=== PATIENT | male | born 1990 | race Caucasian/White ===

== ENCOUNTER 2016-06-18 10:01 | Inpatient (IN) | payer OTHER ==
--- NOTE | ~2016-06-18 | PA ---
Unit #: [id number] #: [id number] Patient: KADE GOMEZ [id number] [facility] [address] [place] [address] [id number] MR#: [id number] NAME: KADE GOMEZ. ROOM: 85 Age: 26 Sex: M Admission Date: 06/18/2016 : 1990 Date of Assessment: 06/19/2016 Attending Physician: Zaid Robertson M.D. Admitting Physician: Zaid Robertson M.D. PSYCHIATRIC ASSESSMENT INFORMANTS The patient reliability, fair informant and chart reliability, good. CHIEF COMPLAINT Substance abuse withdrawals and opioid abuse. HISTORY OF PRESENT ILLNESS Jack Gomez is a 26-year-old male, seen on , who presented with the opioid addiction. The patient reported having opioid addiction and withdrawal. The patient reported using 7 to 10 Roxys 30 mg daily. The patient reported last use yesterday. The patient reported his longest time of no use was two days. The patient reported currently symptoms such as restlessness of his legs, cold sweats, body aches, stuffy nose, low energy, dilated pupil, and irritability. The patient reported "I have opioid addiction." The patient currently denied any suicidal or homicidal ideation. The patient currently having withdrawal symptoms as mentioned above. Needing inpatient admission at this time for psychiatric stabilization. Denied any psychotic symptoms. The patient scored 17 on COWS score. PAST PSYCHIATRIC HISTORY Remarkable for history of outpatient treatment. No history of any inpatient treatment. FAMILY HISTORY AND SOCIAL HISTORY History of opioid abuse in mother and father. No history of any abuse. MEDICAL HISTORY Remarkable for asthma and obesity. Musculoskeletal; muscle strength and tone, no atrophy or abnormal movement. Gait normal. MEDICATION HISTORY None. ALLERGIES No known drug allergies. SUBSTANCE ABUSE HISTORY The patient reported alcohol use, age of onset 16; marijuana, age of onset 18; and opioid, age of onset 23. The patient denied any blackout, HIV, hepatitis, or any IV drug use, but currently reporting abdominal cramping, muscle cramping, diaphoresis, poor appetite, sleep problem, depressed mood, runny nose, muscle cramping, and tremors. Unit #: [id number] #: [id number] Patient: KADE GOMEZ REVIEW OF SYSTEMS HEENT: Eyes, clear. Ears, nose, mouth, and throat; clear. CARDIOVASCULAR: Unremarkable. RESPIRATORY: Unremarkable. GI: Unremarkable. : Unremarkable. SKIN: Unremarkable. LYMPH NODE: Unremarkable. NEUROLOGIC: Unremarkable. ENDOCRINE: Unremarkable. HEMATOLOGIC: Unremarkable. ALLERGIC/IMMUNOLOGIC: Unremarkable. MUSCULOSKELETAL: Muscle strength and tone, no atrophy or abnormal movement. Gait normal. MENTAL STATUS EXAMINATION CONSTITUTIONAL: Measurement of vital signs; temperature 97.6, heart rate 65, respiratory rate 17, blood pressure 122/70, height 5 feet 6 inches, and weight is 278 pounds. GENERAL APPEARANCE: The patient dressed casually. The patient did not show any facial deformity. MUSCULOSKELETAL: Please see above. PSYCHIATRIC EXAMINATION Description of speech; regular rate, normal volume, normal articulation, and coherent. Description of thought process, goal directed. Description of association, intact. Description of abnormal psychotic thinking; the patient denied any hallucinations or delusions. Mood lability. Substance abuse. Description of the patient's judgment: Concerning everyday activity, poor. Social situation, poor. Concerning psychiatric condition, poor. Complete mental status examination; oriented in time, place, and person. Recent and remote memory, fair. Attention span and concentration, fair. Language, able to name object and repeat phrases. Fund of knowledge, aware of current event and passive vocabulary intact. Mood and affect, sad and dysphoric. Insight and judgment, fair to poor. ASSETS AND LIABILITIES Assets, the patient is articulate and able to take care of his ADL. Liability, history of substance abuse. ADMITTING DIAGNOSES Psychiatric: Opioid use disorder, severe, F11.20 and mood disorder, not otherwise specified, F32.9. Secondary diagnosis: Deferred. Medical diagnoses: Obesity and asthma. Stressors: Psychosocial stressors. PSYCHIATRIC PLAN AND TREATMENT GOAL AND DISCHARGE PLAN 1. Advised to admit the patient on the inpatient unit. Provide safe, supportive, and structured environment. 2. Ordered labs; CBC, CMP, UA, and UDS. 3. Detox protocol and detox monitoring. Unit #: [id number] #: [id number] Patient: KADE GOMEZ 4. If needed, consider further adjustment of medication. 5. The patient to attend all the programing on the inpatient unit with group therapy, individual therapy, and medication management. TREATMENT GOAL To attain euthymic mood, gain insight into his problem, and learn coping skills. DISCHARGE PLAN Plan to stabilize the patient and consider followup in outpatient program. ESTIMATED LENGTH OF STAY 5 days. Dictated by... Genevieve Tom/evelio TD: 06/19/2016 17:09 JOB #: [id number] PSYCHIATRIC ASSESSMENT Page 1 of 1 X Zaid Robertson MD X PSYCHIATRIC ASSESSMENT
--- NOTE | ~2016-06-18 | PN ---
Unit #: [id number] #: [id number] Patient: KADE GOMEZ [id number] [facility] [address] [place] [address] [id number] MR#: [id number] NAME: KADE GOMEZ. ROOM: P185 Age: 26 Sex: M Admission Date: 06/18/2016 : 1990 Attending Physician: Zaid Robertson M.D. Admitting Physician: Genevieve Tom PROGRESS NOTES DATE OF SERVICE: 06/19/2016 DISCUSSION Kade Gomez is a 26-year-old male, seen on 06/19/2016. The patient interviewed, chart reviewed, and obtained information from nursing staff. The patient withdrawn, isolative, flat affect, sad, and dysphoric. Still having withdrawal symptoms such as anxiety, nervousness, mood lability, muscle cramping, restlessness, and anxiety. REVIEW OF SYSTEMS Complete review of systems unremarkable. MENTAL STATUS EXAMINATION General appearance, the patient dressed casually. Vital signs; temperature afebrile, pulse 70, respirations 16, blood pressure 144/74. Attention span and concentration, fair. Oriented in time, place, and person. Mood and affect were labile. Speech, regular rate. Thought process, goal directed. The patient denied any thoughts of harming self or others or any psychotic symptom. Recent and remote memory, poor. Insight and judgment, poor. DIAGNOSIS Opioid use disorder, severe, F11.20. ASSESSMENT AND PLAN Advised to continue with current detox protocol and detox monitoring. If needed, consider further adjustment of medication. Dictated by... Genevieve Tom/evelio TD: 06/20/2016 04:02 JOB #: [id number] Unit #: [id number] #: [id number] Patient: KADE GOMEZ MARIANNE GRIDER NOTES X Zaid Robertson MD PROGRESS NOTE
--- NOTE | ~2016-06-18 | HP ---
Unit #: [id number] #: [id number] Patient: KADE GOMEZ [id number] [place] [address] [id number] MR#: [id number] NAME: KADE GOMEZ. ROOM: P186 Age: 26 Sex: M Admission Date: 06/18/2016 : 1990 Attending Physician: Zaid Robertson M.D. Admitting Physician: Zaid Robertson M.D. HISTORY AND PHYSICAL HISTORY OF PRESENT ILLNESS Kade is a 26 year old admitted to [facility] because of his abuse of pain pills. PAST MEDICAL HISTORY 1. Long history of opioid abuse. 2. Morbid obesity. 3. Asthma. PAST SURGICAL HISTORY Appendectomy. ALLERGIES No known drug allergies. SOCIAL HISTORY He denies cigarettes and alcohol. Admits to a long history of opioid abuse. Currently, he is using up to 300 mg of some kind of opioid on a daily basis. FAMILY HISTORY Medically noncontributory. REVIEW OF SYSTEMS CONSTITUTIONAL: No fever or chills. HEENT: Denies any sore throat, ear pain or runny nose. CARDIOVASCULAR: Denies chest pain, irregular heart rhythm or palpitations. CHEST: Denies shortness of breath or cough. No hemoptysis. GASTROINTESTINAL: Denies nausea, vomiting, diarrhea or chronic constipation. ENDOCRINE: Denies history of increased thirst or urination. No recent significant weight loss or gain. GENITOURINARY: Denies dysuria, frequency, or hematuria. SKIN: Denies any rashes. HEMATOLOGIC: Denies history of increased bleeding or bruising. MUSCULOSKELETAL: Denies any hot, swollen joints. No generalized muscle pain. NEUROLOGIC: Denies problems with vision or speech. No frequent, severe headaches. No numbness, tingling or weakness in any extremities. Denies loss of bladder or bowel control. CURRENT MEDICATIONS Detox protocol. Unit #: [id number] #: [id number] Patient: KADE GOMEZ PHYSICAL EXAMINATION GENERAL: Alert, well-nourished, in no apparent distress. VITAL SIGNS: Blood pressure 144/74, heart rate 76, respirations 16, temperature 98.6. WEIGHT: 278. HEIGHT: 5 feet 6 inches. SKIN: Warm and dry without rash or lesion. HEENT: Normocephalic. TMs not viewed. Oral and nasal passages clear. Conjunctivae clear. PERRLA. EOMs intact. NECK: Supple without lymphadenopathy or thyromegaly. HEART: Regular rate and rhythm without murmur. LUNGS: Clear. ABDOMEN: Soft, nontender. : Not done. EXTREMITIES: No evidence of cyanosis, clubbing or edema. Moves all without focal deficit. NEUROLOGICAL: Grossly within normal limits. Cranial Nerves: II: Visual panchal are intact. III, IV AND : Extraocular movements are intact. Pupils are equal, round and reactive to light. V: Facial sensation is grossly normal. VII: Facial movements and expression are normal. VIII: Auditory acuity grossly intact. IX, X: Uvula is midline. Phonation is normal. XI: Patient shrugs shoulders and turns head normally. XII: Tongue protrudes in the midline. Sensory and Motor Function: Sensory and motor sensation is grossly normal. Motor: moves all extremities well. Coordination: Gait is normal. Deep Tendon Reflexes: Intact. IMPRESSION Psychiatric admission. RECOMMENDATIONS PSYCHIATRIC: Per psychiatrist. MEDICAL: See no contraindications to participate in facility's activities. MEDICAL PROGNOSIS Good. MEDICAL CONDITION Stable. Dictated by... Tamar Garcia P.A.-C. for Genevieve Tamez/richi TD: 06/18/2016 23:12 JOB #: [id number] Unit #: [id number] #: [id number] Patient: KADE GOMEZ HISTORY AND PHYSICAL X Tamar Garcia X HISTORY AND PHYSICAL
--- NOTE | ~2016-06-18 | PN ---
Unit #: [id number] #: [id number] Patient: KADE GOMEZ [id number] [facility] [address] [place] [address] [id number] I MR#: [id number] NAME: KADE GOMEZ. ROOM: P185 Age: 26 Sex: M Admission Date: 06/18/2016 : 1990 Attending Physician: Zaid Robertson M.D. Admitting Physician: Genevieve Tom PROGRESS NOTES DATE 06/20/2016 DISCUSSION Kade Gomez is a 26-year-old male seen on 06/20/2016. The patient interviewed, chart reviewed. Obtained information from nursing staff. The patient was compliant and cooperative. Mood sad, dysphoric, withdrawn, isolative, guarded. The patient was able to participate in all programming, able to maintain safe behavior. Complete review of systems unremarkable. MENTAL STATUS EXAMINATION General appearance, the patient dressed casually. Attention span and concentration fair. Oriented to place and person. Mood and affect sad, depressed. Speech monotone. Thought process concrete. The patient denied any thoughts of harming self or others but sad, depressed, withdrawn, isolative. Recent and remote memory poor. Insight and judgement poor. DIAGNOSES 1. Mood disorder NOS. 2. Opioid use disorder severe. ASSESSMENT/PLAN Advise to continue with current medication and therapeutic protocol. If needed consider further adjustment of medication. Dictated by... Genevieve Tom/hermelindo TD: 06/22/2016 02:41 JOB #: [id number] Unit #: [id number] #: [id number] Patient: KADE OGMEZ [facility] PROGRESS NOTES X Zaid Robertson MD PROGRESS NOTE
--- NOTE | ~2016-06-18 | DS ---
Unit #: [id number] #: [id number] Patient: KADE GOMEZ [id number] [place] [address] [id number] I MR#: [id number] NAME: KADE GOMEZ. ROOM: P185 Age: 26 Sex: M Admission Date: 06/18/2016 : 1990 Discharge Date: 06/21/2016 Attending Physician: Zaid Robertson M.D. DISCHARGE SUMMARY REASON FOR ADMISSION Chemical dependency. HOSPITAL COURSE Kade Gomez is a 26-year-old male, admitted on 06/18/2016 and discharged on 06/21/2016. The patient was treated on the inpatient unit with detox protocol and detox monitoring. The patient responded with group therapy, individual therapy, and medication management. Subsequently, the patient was discharged with a plan to follow up in outpatient program. DISCHARGE MEDICATIONS None. DISCHARGE DIAGNOSES Psychiatric: 1. Opioid use disorder, severe, F11.20. 2. Mood disorder, not otherwise specified, F32.9. Secondary diagnosis: Deferred. Medical diagnosis: None. Stressors: Psychosocial stressors. DISCHARGE INSTRUCTIONS The patient is to follow up in outpatient clinic as per social studies department chair. PROGNOSIS Guarded. DIET AND ACTIVITY As tolerated. Dictated by... Zaid Robertson M.D. SZGilberto/marcelol TD: 06/21/2016 15:28 JOB #: [id number] Unit #: [id number] #: [id number] Patient: KADE GOMEZ DISCHARGE SUMMARY X Zaid Robertson MD X DISCHARGE SUMMARY
--- NOTE | ~2016-06-18 | CO ---
Unit #: [id number] #: [id number] Patient: KADE GOMEZ [id number] [place] [address] [id number] MR#: [id number] NAME: KADE GOMEZ ROOM: P185 Age: 26 Sex: M Admission Date: 06/18/2016 : 1990 Attending Physician: Zaid Robertson M.D. Consultation Date: 06/18/2016 CONSULTATION REPORT SUBJECTIVE Kade is a 26-year-old with history of asthma. He has told staff that he has used an inhaler at some time, but has been noncompliant with this for a very long time. We have been asked to assess and treat. The patient was seen for his admission H and P on 06/18/2016. He did give us a history of COPD/asthma, and reported he had no problem with this in quite some time. The patient was examined and lungs were found to be clear. There was no plan to start any kind of inhaler. Dictated by... Tamar Garcia P.A.-C. for Genevieve Tamez/evelio TD: 06/25/2016 03:20 JOB #: [id number] CONSULTATION REPORT Page 1 of 1 X Tamar Garcia CONSULTATION REPORT
[2016-06-19 12:24] LABS: BASOPHIL% 0.3 % (0-2.5); EOSINOPHIL# 0.1 X10e3 (0-0.7); EOSINOPHIL% 0.5 % (0.0-7.0); HEMATOCRIT 37.5 % (38.0-50.0); HEMOGLOBIN 12.7 gm/dL (13.0-16.0); LYMPHOCYTE# 2.3 X10e3 (1.0-3.5); LYMPHOCYTE% 18.1 % (17.0-45.0); MEAN CELL VOLUME 84.3 FL (83-96); MEAN CORPUSCULAR HEMOGLOBIN 28.4 PG (28-34); MEAN CORPUSCULAR HGB CONC 33.7 g/dL (30-36); MEAN PLATELET VOLUME 7.7 FL (6.5-11.5); MONOCYTE# 0.8 X10e3 (0-1.0); NEUTROPHIL# 9.5 X10e3 (1.5-7.1); NEUTROPHIL% 75.1 % (40-75); PLATELET COUNT 351 X10e3 (140-420); RED BLOOD COUNT 4.45 X10e (3.90-5.60); RED CELL DISTRIBUTION WIDTH 12.8 % (11.0-15.5); WHITE BLOOD COUNT 12.6 X10e3 (4.0-10.5)
[2016-06-19 12:40] LABS: ALBUMIN SERUM 4.5 g/dL (3.5-5.0); ALKALINE PHOSPHATASE 58 U/L (32-92); ALT (SGPT) 35 U/L (10-40); AST (SGOT) 22 U/L (10-42); BILIRUBIN,TOTAL 0.6 mg/dL (0.2-2.0); BLOOD UREA NITROGEN 11 mg/dL (9-23); BUN/CREATININE RATIO 15.71; CALCIUM SERUM 10.1 mg/dL (8.4-10.2); CARBON DIOXIDE 26 mmol/L (22-31); CHLORIDE 105 mmol/L (100-111); CREATININE SERUM 0.7 mg/dL (0.6-1.4); GLOM FILT RATE Estimated ABOVE60 mL/min (>60); GLUCOSE FASTING 104 mg/dL (70-110); POTASSIUM 3.9 mmol/L (3.5-5.1); PROTEIN TOTAL SERUM 7.7 g/dL (6.0-8.3); SODIUM 140 mmol/L (135-145)
[2016-06-19 12:44] LABS: DIFF IND NO
[2016-06-19 12:45] LABS: THYROID STIMULATING HORMONE 0.51 uIU/ml (0.34-5.60)
[2016-06-19 12:52] LABS: FREE THYROXIN (T4) 0.88 ng/dL (0.58-1.64)
[2016-06-20 14:34] LABS: URINE APPEARANCE CLEAR; URINE BILIRUBIN NEG (NEG); URINE BLOOD NEG (NEG); URINE COLOR YELLOW; URINE GLUCOSE NEG (NEG); URINE KETONE NEG (NEG); URINE LEUKOCYTE ESTERASE NEG (NEG); URINE NITRATE NEG (NEG); URINE PH 5.5 (5-8); URINE PROTEIN NEG (NEG); URINE SPECIFIC GRAVITY 1.017 (1.003-1.035); URINE UROBILINOGEN 0.2 MG/DL (NEG)
[2016-06-20 14:57] LABS: AMPHETAMINE NEG (NEG); BARBITURATES NEG (NEG); BENZODIAZEPINES NEG (NEG); COCAINE NEG (NEG); MARIJUANA NEG (NEG); OPIATES NEG (NEG); TRICYCLIC ANTIDEPRESSANTS POS (NEG); U METHADONE NEG (NEG)
== END 2016-06-21 11:20 | disposition home or self-care (01) | DRG 897 ==
LOC: POF 10:01 → P1E 10:32
PROVIDERS: Psychiatry & Neurology Psychiatry
PROC: HZ2ZZZZ Detoxification Services for Substance Abuse Treatment (ICD-10-PCS; principal; 2016-06-18)
PROC: 3E0234Z Introduction of Serum, Toxoid and Vaccine into Muscle, Percutaneous Approach (ICD-10-PCS; 2016-06-19)
DX: F11.20 Opioid dependence, uncomplicated (principal); Z68.41 Body mass index [BMI] 40.0-44.9, adult; E66.01 Morbid (severe) obesity due to excess calories; J45.909 Unspecified asthma, uncomplicated; F39 Unspecified mood [affective] disorder; Z23 Encounter for immunization
CPT/HCPCS: 80053; 80307; 81003; 84439; 84443; 85025; 86592; 90688

== ENCOUNTER 2016-07-09 21:49 | Emergency (ER) | payer OTHER ==
[2016-07-09 21:29] LABS: INFLUENZA A POS (NEG); INFLUENZA B NEG (NEG)
== END 2016-07-09 22:45 | disposition home or self-care (01) ==
LOC: CFTX 21:49
PROVIDERS: Nurse Practitioner Family
DX: J10.1 Influenza due to other identified influenza virus with other respiratory manifestations (principal); Z90.49 Acquired absence of other specified parts of digestive tract
CPT/HCPCS: 87804; 99282; 99283